=== PATIENT | male | born 1975 | race Caucasian/White ===

== ENCOUNTER 2018-10-08 21:41 | Emergency (ER) | payer MEDICAID ==
[~2018-10-08] VITALS: Ht 188 cm; Wt 95.2 kg
[2018-10-09] MEDS ORDERED: NYST100000 SS (00:39)
== END 2018-10-09 01:51 | disposition home or self-care (01) ==
LOC: ER 21:41
DX: B37.0 Candidal stomatitis (principal); J02.9 Acute pharyngitis, unspecified; F17.200 Nicotine dependence, unspecified, uncomplicated; Z79.899 Other long term (current) drug therapy
CPT/HCPCS: 71046; 87081; 87430; 99283-25